=== PATIENT | male | born 1965 | race Caucasian/White ===

== ENCOUNTER 2022-06-04 19:08 | Emergency (ER) | payer OTHER ==
[~2022-06-04] VITALS: Ht 175.3 cm; Wt 117.9 kg
--- NOTE | 2022-06-04 19:19 | NUR ---
Patient to ER bed 7 to gown for evaluation. Side rails up. Report given to ANN WASHBURN.
--- NOTE | 2022-06-04 19:20 | NUR ---
Patient came in to the emergency department for allergic reaction s/p stung by a bee an hour [employer]ERE[employer]. Patient complains of swelling of hands, itchiness all over/hives, facial redness and heartburn. Patient reports mild throat discomfort otherwise lungs are clear, no shortness of breath. Patient hooked to continuous, made comfortable in bed with head of bed elevated. Will continue to monitor
--- NOTE | 2022-06-04 19:24 | NUR ---
ER at bedside examining patient.
[2022-06-04] MEDS ORDERED: EPINEPHRINE HCL/PF 1 MG/ML AMP ONE (19:25)
[2022-06-04] MEDS ORDERED: methylPREDNISolone SOD SUCC/PF 62.5 MG/ML VIAL IVP ONE (19:30)
[2022-06-04] MEDS ORDERED: FAMOTIDINE PF 20 MG/2 ML VIAL IVP ONE (19:30)
[2022-06-04] MEDS ORDERED: EPINEPHrine HCL 1 MG/ML VIAL IM ONE (19:30)
[2022-06-04] MEDS ORDERED: DIPHENHYDRAMINE INJ 50 MG/ML VIAL IVP ONE (19:30)
[2022-06-04 19:48] LABS: BASOPHILS # (AUTO) 0.1 K/uL (0.0-0.2); BASOPHILS % (AUTO) 0.7 % (0.0-2.0); EOSINOPHILS # (AUTO) 0.3 K/uL (0.0-0.4); HEMATOCRIT 40.9 % (36-54); HEMOGLOBIN 14.2 g/dL (14.0-18.0); LYMPHOCYTES # (AUTO) 2.7 K/uL (1.0-5.5); LYMPHOCYTES % (AUTO) 35.5 % (20.5-51.5); MEAN CORPUSCULAR HEMOGLOBIN 32 pg (27-31); MEAN CORPUSCULAR HGB CONC 35 % (32-36); MEAN CORPUSCULAR VOLUME 93 fL (79.0-98.0); MONOCYTES # (AUTO) 0.5 K/uL (0.0-1.0); MONOCYTES % (AUTO) 6.9 % (1.7-9.3); NEUTROPHILS % (AUTO) 52.9 % (40.0-70.0); PLATELET COUNT (AUTO) 318 K/uL (130-430); RED BLOOD CELL COUNT(AUTO) 4.42 MIL/uL (4.2-6.2); RED CELL DISTRIBUTION WIDTH 12.3 % (9.0-15.0); WHITE BLOOD COUNT (AUTO) 7.6 K/uL (4.8-10.8)
[2022-06-04 19:56] LABS: ANION GAP 12 (5-15); CHLORIDE 96 mmol/L (98-107); CREATININE 0.88 mg/dL (0.55-1.30); GLUCOSE 187 mg/dL (70-99); POTASSIUM 3.4 mmol/L (3.5-5.1); SODIUM SERUM 130 mmol/L (136-145); UREA NITROGEN, BLOOD 13 mg/dL (8-21)
[2022-06-04 19:58] LABS: GFR AFRICAN AMERICAN 114 mL/min (>90)
[2022-06-04 20:04] LABS: ALANINE AMINOTRANSFERASE 66 U/L (12-78); ALBUMIN 3.3 g/dL (3.4-4.8); ASPARTATE AMINOTRANSFERASE 49 U/L (10-37); TOTAL BILIRUBIN 0.4 mg/dL (0.0-1.0)
[2022-06-04 20:05] LABS: CALCIUM 8.1 mg/dL (8.4-11.0)
--- NOTE | 2022-06-04 20:30 | NUR ---
Patient states feeling better, with decreasing facial redness and hives.
[2022-06-04] MEDS ORDERED: PRED20TA PO (21:20)
[2022-06-04] MEDS ORDERED: BEN50 PO (21:20)
[2022-06-04] MEDS ORDERED: FAMO-132 PO (21:20)
[2022-06-04] MEDS ORDERED: EPIN0.3A9 IM (21:20)
[2022-06-04 21:32] VITALS: BP_SYST 141
--- NOTE | 2022-06-04 21:32 | NUR ---
Patient given written and verbal discharge instructions and verbalizes understanding. ER MD discussed with patient the results and treatment provided. Patient in stable condition. ID arm band removed. IV catheter removed intact and dressing applied, no active bleeding.Rx of benadryl, epi-pen and prednisone sent to preferred pharmacy. Patient educated on pain management and to follow up with PMD. Pain Scale 0/10. Opportunity for questions provided and answered.
== END 2022-06-04 21:32 | disposition home or self-care (01) ==
LOC: SED 19:08
DX: T78.2XXA Anaphylactic shock, unspecified, initial encounter (principal); T63.441A Toxic effect of venom of bees, accidental (unintentional), initial encounter; Z79.899 Other long term (current) drug therapy
CPT/HCPCS: 36415; 71045; 80053; 84484; 85025; 93005; 96372; 96374; 96375; 99291; J0171; J1200; J2930; J3490